=== PATIENT | female | born 1965 | race Caucasian/White ===

== ENCOUNTER 2016-12-03 18:47 | Emergency (ER) | payer SELFPAY ==
[2016-12-03] MEDS ORDERED: ONDANSETRON 4 MG/2 ML VIAL IVP STA (19:17)
[2016-12-03] MEDS ORDERED: PANTOPRAZOLE 40 MG/10 ML VIAL IVP STA (19:18)
[2016-12-03] MEDS ORDERED: SODIUM CHLORIDE 0.9% 1,000 ML IV STA (19:18)
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
[2016-12-03 20:04] LABS: Basophils # (A) 0.1 k/uL (0-0.2); Basophils % (A) 1 %; CH 32.3; Eosinophils # (A) 0.1 k/uL (0-0.7); Eosinophils % (A) 1 %; HCT 44.8 % (34.0-46.0); HDW 2.59; HGB 15.1 gm/dL (11.4-16.0); Luc # (Auto) 0.15; Luc % (Auto) 2; Lymphocytes % (A) 30 %; MCH 31.2 pg (25.0-35.0); MCHC 33.7 g/dL (31.0-37.0); MCV 92.6 fL (80.0-100.0); Mean Platelet Volume 7.8; Monocytes # (A) 0.2 k/uL (0-1.0); Monocytes % (A) 3 %; Neutrophils # (A) 4.1 k/uL (1.3-7.7); Neutrophils % (A) 62 %; RBC 4.83 m/uL (3.80-5.40); RDW 12.4 % (11.5-15.5); WBC 6.7 k/uL (3.8-10.6); WBC (Perox) 6.47
[2016-12-03 20:18] LABS: Anion Gap 22 mmol/L; Blood Urea Nitrogen 10 mg/dL (7-17); Calcium 8.1 mg/dL (8.4-10.2); Carbon Dioxide 21 mmol/L (22-30); Chloride 99 mmol/L (98-107); Glucose 95 mg/dL (74-99); Non-African American GFR(MDRD) >60 (>60 ml/min/1.73 sqM); Potassium 3.9 mmol/L (3.5-5.1); Sodium 142 mmol/L (137-145)
--- NOTE | 2016-12-03 20:20 | CT ---
EXAMINATION TYPE: CT brain wo con DATE OF EXAM: 12/03/2016 8:03 PM COMPARISON: NONE HISTORY: Posterior injury today CT DLP: 1072.3 mGycm Automated exposure control for dose reduction was used. FINDINGS: The ventricles and sulci appear normal. There is no mass effect nor midline shift. There is no eviden ce of intracranial hemorrhage. Calvarium is intact. There is no sign of a fracture. There is a right posterior parietal scalp small hematoma noted. IMPRESSION: Normal CT scan of the brain. Small right parietal scalp hematoma.
[2016-12-03 20:38] LABS: Alcohol 269 mg/dL
[2016-12-03 21:45] VITALS: BP 112/58; PULSE 84; RESP 18; TEMP 97.9
== END 2016-12-03 21:43 | disposition home or self-care (01) ==
LOC: EC 18:47
DX: S06.0X1A Concussion with loss of consciousness of 30 minutes or less, initial encounter (principal); K29.70 Gastritis, unspecified, without bleeding; W22.8XXA Striking against or struck by other objects, initial encounter; Y92.511 Restaurant or cafe as the place of occurrence of the external cause; Z87.891 Personal history of nicotine dependence
CPT/HCPCS: 99284; 96374; 96375; 36415; 80048; 85025; 82271; 80320; 70450; J2405; C9113